=== PATIENT | female | born 1955 | race Caucasian/White ===

== ENCOUNTER 2017-08-29 14:14 | Outpatient (CLI) | payer OTHER | END 2017-08-29 14:15 | disposition home or self-care (01) | LOC: BICMAMMO 14:14 | PROVIDERS: ATTEND Family Medicine | DX: Z12.31 Encounter for screening mammogram for malignant neoplasm of breast (principal); R92.1 Mammographic calcification found on diagnostic imaging of breast | CPT/HCPCS: 77067 ==

== ENCOUNTER 2019-03-12 16:56 | Emergency (ER) | payer OTHER ==
--- NOTE | 2019-03-12 19:32 | CT ---
CT BRAIN NONCONTRAST: DATE: 03/12/2019 HISTORY: 64-year-old female with posttraumatic headache and dizziness. FINDINGS: There is no evidence of acute intra-axial or extra-axial hemorrhage. There is no midline shift or any other mass effect. There is no extra-axial fluid collection. There is no evidence of obstructive hydrocephalus. Calvarium is intact. There are low attenuation areas in the white matter. These are no nspecific, but in a patient of this age, they are probably chronic ischemic white matter changes due to microvascular atherosclerosis. IMPRESSION: 1) No acute intracranial findings. 2) chronic ischemic white matter changes.
--- NOTE | 2019-03-12 19:37 | CT ---
EXAM: CT cervical spine PROVIDED CLINICAL HISTORY: Trauma COMPARISON: None FINDINGS: No evidence for fracture or traumatic subluxation. No prevertebral soft tissue swelling apparent. Vi sualized lung apices appear clear. Degenerative changes noted. IMPRESSION: No evidence for fracture or traumatic subluxation.
--- NOTE | 2019-03-12 19:50 | RAD ---
EXAM: XR Lumbar Spine 2 Or 3 View PROVIDED CLINICAL HISTORY: Pain status post injury COMPARISON: None FINDINGS: No evidence for fracture or traumatic subluxation. Vertebral body heights are preserved. Degenerative changes are seen. IMPRESSION: As above.
--- NOTE | 2019-03-12 19:51 | RAD ---
EXAM: XR Thoracic Spine 3 V STANDARD PROVIDED CLINICAL HISTORY: Pain COMPARISON: None FINDINGS: Thoracic alignment appears normal. Vertebral body heights appear preserved. Multilevel thoracic disc degenerative changes are seen. IMPRESSION: No evidence for an acute osseous abnormality.
== END 2019-03-12 21:50 | disposition home or self-care (01) ==
LOC: ERS 16:56
DX: S00.03XA Contusion of scalp, initial encounter (principal); S05.11XA Contusion of eyeball and orbital tissues, right eye, initial encounter; E03.9 Hypothyroidism, unspecified; F31.9 Bipolar disorder, unspecified; F41.9 Anxiety disorder, unspecified; Z79.899 Other long term (current) drug therapy; W22.8XXA Striking against or struck by other objects, initial encounter
CPT/HCPCS: 70450; 72072; 72100; 72125; 93005; L0120

== ENCOUNTER 2019-03-18 11:25 | Outpatient (CLI) | payer OTHER ==
--- NOTE | 2019-03-18 11:53 | RAD ---
2 VIEWS CHEST: Date: 03/18/2019 HISTORY: Shortness of breath. FINDINGS: No pneumothorax, pleural fluid, focal consolidation, or alveolar edema. Heart and mediastinal contour s are unremarkable. IMPRESSION: No acute findings. POS: [facility]
== END 2019-03-18 11:26 | disposition home or self-care (01) ==
LOC: SCSRAD 11:25
PROVIDERS: ATTEND Nurse Practitioner Family
DX: R06.02 Shortness of breath (principal)
CPT/HCPCS: 71046

== ENCOUNTER 2020-12-12 09:19 | Outpatient (CLI) | payer OTHER ==
[2020-12-12 10:42] LABS: Hemoglobin 11.8 g/dL (12.0-15.5); Mean Corpuscular HGB CONC 31.9 g/dL (32.0-36.0); Mean Corpuscular Hemoglobin 29.7 pg (27.0-33.0); Mean Corpuscular Volume 93.2 fl (81.6-98.3); Mean Platelet Volume 10.2 fl (7.4-10.4); Platelet Count 270 10x3/uL (150-450); RBC Distribution Width 15.5 % (11.5-14.5); Red Blood Cell (RBC) Count 3.97 10x6/uL (3.90-5.03); White Blood Cell (WBC) Count 7.4 10x3/uL (3.5-10.5)
[2020-12-12 10:52] LABS: Prothrombin Time 11.2 sec (9.5-12.1)
[2020-12-12 10:53] LABS: Anion Gap 13 mmol/L (10-20); BUN (Urea Nitrogen) 20 mg/dL (9.8-20.1); Calc. Creatinine Clearance 0 mL/min (70-130); Calcium 9.7 mg/dL (7.8-10.44); Carbon Dioxide 26 mmol/L (23-31); Chloride 106 mmol/L (98-107); Glucose 101 mg/dL (80-115); Potassium 4.3 mmol/L (3.5-5.1); Sodium 141 mmol/L (136-145)
[2020-12-12 21:37] LABS: SARS-CoV-2 PCR by NAA Not Detected (NotDetected)
== END 2020-12-12 09:20 | disposition home or self-care (01) ==
LOC: LABBT 09:19
PROVIDERS: ATTEND Internal Medicine Cardiovascular Disease
DX: Z01.812 Encounter for preprocedural laboratory examination (principal); I48.0 Paroxysmal atrial fibrillation; I48.3 Typical atrial flutter; Z20.822 Contact with and (suspected) exposure to COVID-19
CPT/HCPCS: 80048; 85027; 85610; U0003; U0005

== ENCOUNTER 2020-12-15 06:00 | Day surgery (SDC) | payer OTHER ==
[2020-12-13 14:23] VITALS: BMI 36.0
[2020-12-15] MEDS ORDERED: Fentanyl 100 MCG/2 ML VIAL ONE ×2 (06:53→11:23)
[2020-12-15] MEDS ORDERED: Heparin 25,000 units/D5W 500 ML ONE (07:02)
[2020-12-15] MEDS ORDERED: Heparin 10,000 UNITS/ 10 ML VIAL ONE (07:02)
[2020-12-15] MEDS ORDERED: Midazolam HCl 2 mg/2 ml Vial ONE (07:02)
[2020-12-15] MEDS ORDERED: PROPOFOL 200 MG/20 ML VIAL ONE (07:30)
[2020-12-15] MEDS ORDERED: Dexamethasone 20 MG/5 ML VIAL ONE (07:30)
[2020-12-15] MEDS ORDERED: Lidocaine 1% PF 5 ML VIAL ONE (07:30)
[2020-12-15] MEDS ORDERED: ePHEDrine 50 MG/ML VIAL ONE (07:30)
[2020-12-15] MEDS ORDERED: Rocuronium Bromide 10 MG/ML (10ML VIAL) ONE (07:30)
[2020-12-15] MEDS ORDERED: PHENYLEPHRINE-NS 100 MCG/ML 10 ML SYRINGE ONE (07:30)
== END 2020-12-15 15:54 | disposition home or self-care (01) ==
LOC: CCL 06:00
PROVIDERS: ATTEND Internal Medicine Cardiovascular Disease
PROC: B244ZZ3 Ultrasonography of Right Heart, Intravascular (ICD-10-PCS; principal; 2020-12-15)
PROC: 02K83ZZ Map Conduction Mechanism, Percutaneous Approach (ICD-10-PCS; principal; 2020-12-15)
PROC: B24CZZ4 Ultrasonography of Pericardium, Transesophageal (ICD-10-PCS; principal; 2020-12-15)
PROC: B246ZZ4 Ultrasonography of Right and Left Heart, Transesophageal (ICD-10-PCS; principal; 2020-12-15)
PROC: 02583ZZ Destruction of Conduction Mechanism, Percutaneous Approach (ICD-10-PCS; principal; 2020-12-15)
DX: I48.0 Paroxysmal atrial fibrillation (principal); I48.3 Typical atrial flutter; I34.0 Nonrheumatic mitral (valve) insufficiency; I10 Essential (primary) hypertension; I42.8 Other cardiomyopathies; G80.9 Cerebral palsy, unspecified; E03.9 Hypothyroidism, unspecified; G40.909 Epilepsy, unspecified, not intractable, without status epilepticus; Z79.01 Long term (current) use of anticoagulants; Z79.899 Other long term (current) drug therapy
CPT/HCPCS: 85347; 93005; 93312; 93613; 93655; 93656; 93662; C1731; C1732; C1759; C1894; C2630; J1100; J1644; J2250; J2704; J3010; J3490